=== PATIENT | female | born 1985 ===

== ENCOUNTER 2017-08-30 19:02 | Emergency (ER) | payer OTHER ==
[2017-08-30 19:37] VITALS: RESP 18
--- NOTE | 2017-08-30 20:43 | ED PDOC ---
HPI: Headache Time Seen by Provider: 08/30/17 20:22 Chief Complaint (Nursing): Headache Chief Complaint (Provider): Headache History Per: Patient History/Exam Limitations: no limitations Onset/Duration Of Symptoms: Days (x 1 week) Current Symptoms Are (Timing): Still Present Associated Symptoms: Photophobia, Blurred Vision, Nausea Additional Complaint(s): Nelia is a 31 y/o female presents to the ED complaining of a headache that started 1 week ago and has gradually gotten worse. Patient states she took Tylenol for 5 days with no relief, so she went to an urgent care where they gave her toradol and benadryl which she states only made her sleepy. She has associated nausea and photophobia. Patient also says that the pain is at baseline 3/10, but reaches 9/10. She has not started any new medications recently and has no known allergies. Patient has known history of migraines. PMD: None Provided Past Medical History Reviewed: Historical Data, Nursing Documentation, Vital Signs Vital Signs: Last Vital Signs Temp 98.4 F 08/30/17 19:35 Pulse 68 08/30/17 19:35 Resp 18 08/30/17 19:35 BP 130/84 08/30/17 19:35 Pulse Ox 99 08/30/17 19:35 - Medical History PMH: Depression, Migraine - Surgical History Surgical History: Appendectomy - Family History Family History: States: No Known Family Hx - Living Arrangements Living Arrangements: With Friends/Others - Social History Current smoker - smoking cessation education provided: No Alcohol: Social Drugs: Denies - Home Medications Home Medications: Ambulatory Orders Medication Instructions Recorded Metoclopramide [Reglan] 10 mg PO Q6 PRN #20 tab 08/30/17 Naproxen [Naprosyn] 500 mg PO BID #20 tab 08/30/17 - Allergies Allergies/Adverse Reactions: Allergies Allergy/AdvReac Type Severity Reaction Status Date / Time No Known Allergies Allergy Verified 08/30/17 19:34 Review of Systems ROS Statement: Except As Marked, All Systems Reviewed And Found Negative Constitutional: Negative for: Fever, Chills Eyes: Positive for: Other (photophobia) Gastrointestinal: Positive for: Nausea. Negative for: Vomiting Neurological: Positive for: Headache. Negative for: Weakness, Numbness, Incoordination, Change in Speech, Confusion, Seizures, Altered Mental Status, Dizziness Physical Exam - Reviewed Nursing Documentation Reviewed: Yes Vital Signs Reviewed: Yes - Physical Exam Appears: Positive for: Well, Non-toxic, No Acute Distress Head Exam: Positive for: ATRAUMATIC, NORMAL INSPECTION, NORMOCEPHALIC Skin: Positive for: Normal Color, Warm. Negative for: Rash Eye Exam: Positive for: Normal appearance, EOMI, PERRL Neck: Positive for: Normal Cardiovascular/Chest: Positive for: Regular Rate, Rhythm. Negative for: Murmur Respiratory: Positive for: Normal Breath Sounds. Negative for: Respiratory Distress Extremity: Positive for: Normal ROM. Negative for: Pedal Edema, Deformity Neurologic/Psych: Positive for: Alert, Oriented. Negative for: Motor/Sensory Deficits - Laboratory Results Urine POC: Negative - ECG O2 Sat by Pulse Oximetry: 99 (RA) Pulse Ox Interpretation: Normal - Other Rad CT head X-Ray: Read By Radiologist X-Ray Interpretation: no acute findng Medical Decision Making Medical Decision Making: Time: 20:38 Initial Impression: 31 y/o female with headache Initial Plan: --Reglan --Toradol --Tylenol --CT Head --IVF Patient reports marked improvement to headache after meds were given. Prescriptions provided for Naprosyn and Reglan. Patient was referred to neurology on-call for follow-up. Scribe Attestation: Documented by Kishore Marvin, acting as a scribe for Svetlana Saba PA-C Provider Scribe Attestation: All medical record entries made by the Scribe were at my direction and personally dictated by me. I have reviewed the chart and agree that the record accurately reflects my personal performance of the history, physical exam, medical decision making, and the department course for this patient. I have also personally directed, reviewed, and agree with the discharge instructions and disposition. Disposition - Clinical Impression Clinical Impression: Migraine - Patient ED Disposition Is Patient to be Admitted: No Counseled Patient/Family Regarding: Studies Performed, Diagnosis, Need For Followup, Rx Given - Disposition Referrals: Pedrito Hutton MD [Medical Doctor] - Disposition: Routine/Home Disposition Time: 22:55 Condition: IMPROVED Additional Instructions: Take prescription meds as directed as needed for pain. Drink plenty of fluids. Follow-up with neurologist for further evaluation. Prescriptions: Metoclopramide [Reglan] 10 mg PO Q6 PRN #20 tab PRN Reason: Nausea/Vomiting Naproxen [Naprosyn] 500 mg PO BID #20 tab Instructions: Migraine Headache (DC) Forms: [employer] (Faroese)
[2017-08-30] MEDS ORDERED: Sodium Chloride 0.9% 1,000 ML IV STA (21:07)
--- NOTE | 2017-08-30 22:38 | CT ---
EXAM: CT Head Without Intravenous Contrast CLINICAL HISTORY: 31 years old, female; Pain; Headache; Headache not specified; Additional info: Headache x 1 week. Sent phy. Doc. TECHNIQUE: Axial computed tomography images of the head/brain without intravenous contrast. All CT scans at this facility use one or more dose reduction techniques, viz.: automated exposure control; ma/kV adjustment per patient size (including targeted exams where dose is matched to indication; i.e. head); or iterative reconstruction technique. Coronal and sagittal reformatted images were created and reviewed. COMPARISON: No relevant prior studies available. FINDINGS: Brain: Minimal atrophy. No intracranial hemorrhage. No mass. No definite edema. Ventricles: No hydrocephalus. 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 No acute fracture. Soft tissues: Unremarkable. Sinuses: No acute sinusitis. Mastoid air cells: No mastoid effusion. Orbits: Unremarkable as visualized. IMPRESSION: 1. No definite acute intracranial abnormality. 2.Non-acute findings are described above.
[2017-08-30 23:00] VITALS: BP 101/60; PULSE 70; TEMP 98
[2017-08-30 23:01] VITALS: O2SAT 99
== END 2017-08-30 23:00 | disposition home or self-care (01) ==
LOC: H.ER 19:02
DX: G43.909 Migraine, unspecified, not intractable, without status migrainosus (principal); F32.9 Major depressive disorder, single episode, unspecified
CPT/HCPCS: 70450; 81025; 96374; 96375; 99284; J1885; J2765; J7040